=== PATIENT | male | born 1950 | race Caucasian/White ===

== ENCOUNTER → 2021-04-14 | Outpatient (CLI) | payer MEDICARE, OTHER ==
[~2021-04-14] MED LIST: BAYER CHEWABLE81 MG PO; CARVEDILOL; FISH OIL 1,001000 M3 PO; FLOMAX0.4 MG PO; HYDROCHLOROTHIA25 M1 PO; HYDROCODON-ACE1 EAC7 PO; KLOR-CON 10 ER10 MEQ PO; LIPITOR 40 MG T40 M1 PO; LOTENSIN10 MG PO; NEURONTIN 400M400 M2 PO; PROSCAR 5MG TABL5 M1 PO; SPIRONOLACTONE25 MG PO; TRAMADOL 50 MG50 MG PO; ZANAFLEX4 M2 PO
== END ==
LOC: M.PC 10:10
PROVIDERS: ATTEND Physical Medicine & Rehabilitation
DX: M43.22 Fusion of spine, cervical region (principal); M43.27 Fusion of spine, lumbosacral region; M43.26 Fusion of spine, lumbar region; M47.814 Spondylosis without myelopathy or radiculopathy, thoracic region; M85.88 Other specified disorders of bone density and structure, other site; M51.36 Other intervertebral disc degeneration, lumbar region; M43.16 Spondylolisthesis, lumbar region; M16.0 Bilateral primary osteoarthritis of hip

== ENCOUNTER → 2021-04-21 | Outpatient (CLI) | payer MEDICARE, OTHER | END | disposition home or self-care (01) | LOC: M.PC 09:24 | PROVIDERS: ATTEND Physical Medicine & Rehabilitation | DX: M54.59 Other low back pain (principal); M79.605 Pain in left leg; M25.552 Pain in left hip; M16.11 Unilateral primary osteoarthritis, right hip; I10 Essential (primary) hypertension; E78.5 Hyperlipidemia, unspecified; Z98.890 Other specified postprocedural states; Z79.899 Other long term (current) drug therapy ==

== ENCOUNTER → 2021-05-10 | Outpatient (CLI) | payer MEDICARE, OTHER | END | disposition home or self-care (01) | LOC: M.PC 09:10 | PROVIDERS: ATTEND Physical Medicine & Rehabilitation | DX: M25.552 Pain in left hip (principal); M16.12 Unilateral primary osteoarthritis, left hip; M54.59 Other low back pain; I10 Essential (primary) hypertension; E78.5 Hyperlipidemia, unspecified; Z98.890 Other specified postprocedural states; Z79.899 Other long term (current) drug therapy; Z79.82 Long term (current) use of aspirin ==

== ENCOUNTER → 2021-05-31 | Outpatient (CLI) | payer MEDICARE, OTHER | LOC: M.PC 05-24 09:20 | PROVIDERS: ATTEND Physical Medicine & Rehabilitation | DX: M43.27 Fusion of spine, lumbosacral region (principal); M43.22 Fusion of spine, cervical region; G95.89 Other specified diseases of spinal cord; M16.12 Unilateral primary osteoarthritis, left hip; I10 Essential (primary) hypertension; E78.5 Hyperlipidemia, unspecified ==

== ENCOUNTER → 2021-07-21 | Outpatient (CLI) | payer MEDICARE, OTHER | LOC: M.PC 09:52 | PROVIDERS: ATTEND Physical Medicine & Rehabilitation | DX: M43.27 Fusion of spine, lumbosacral region (principal); G95.89 Other specified diseases of spinal cord; M16.12 Unilateral primary osteoarthritis, left hip; M79.652 Pain in left thigh; I10 Essential (primary) hypertension; E78.5 Hyperlipidemia, unspecified ==

== ENCOUNTER → 2021-07-28 | Outpatient (CLI) | payer MEDICARE, OTHER | END | disposition home or self-care (01) | LOC: M.PC 09:42 | PROVIDERS: ATTEND Physical Medicine & Rehabilitation | DX: M54.16 Radiculopathy, lumbar region (principal); M25.552 Pain in left hip; M16.12 Unilateral primary osteoarthritis, left hip; G89.29 Other chronic pain; I10 Essential (primary) hypertension; E78.5 Hyperlipidemia, unspecified; Z98.890 Other specified postprocedural states; Z79.899 Other long term (current) drug therapy ==

== ENCOUNTER → 2021-08-09 | Outpatient (CLI) | payer MEDICARE, OTHER | LOC: M.PC 09:04 | PROVIDERS: ATTEND Physical Medicine & Rehabilitation | DX: M43.22 Fusion of spine, cervical region (principal); G95.89 Other specified diseases of spinal cord; M43.27 Fusion of spine, lumbosacral region; M62.81 Muscle weakness (generalized); R20.0 Anesthesia of skin; M79.605 Pain in left leg; M16.12 Unilateral primary osteoarthritis, left hip ==